=== PATIENT | male | born 1985 | race Caucasian/White ===

== ENCOUNTER 2018-08-15 09:23 | Emergency (ER) | payer OTHER ==
[2018-08-15 09:32] VITALS: BP 128/76; PULSE 75; TEMP 97.9; BMI 26.9
--- NOTE | 2018-08-15 10:47 | PDOC ---
History of Present Illness - General Chief Complaint: Wound Stated Complaint: SENT BY DR/WOUND INFECTION Time Seen by Provider: 08/15/18 10:04 History Source: Patient Exam Limitations: No Limitations - History of Present Illness Initial Comments: 08/15/18 10:22 32-year-old male presents to ED for evaluation of left arm dog bite he sustained 15 days ago. Patient states he was bit by the neighbors petty fraser and due to circumstances was incarcerated for 8 days where he states took 3 days of Augmentin but has not taken any for almost 2 days and is requesting a refill. Patient also requesting a dressing change but denies any fever, chills, worsening pain to the area swelling, or skin discoloration patient does state noticed purulent drainage from the smaller dog bite near the elbow this morning and so decided come to the ER for evaluation Timing/Duration: other Severity: mild Associated Symptoms: reports: denies symptoms Past History - Travel Traveled outside of the country in the last 30 days: No Close contact w/someone who was outside of country & ill: No - Past Medical History Allergies/Adverse Reactions: Allergies Allergy/AdvReac Type Severity Reaction Status Date / Time No Known Allergies Allergy Verified 08/14/17 22:52 Home Medications: Ambulatory Orders Amoxicillin/Potassium Clav [Augmentin 500-125 Tablet] 1 each PO BID 08/15/18 Amoxicillin/Potassium Clav [Augmentin 875-125 Tablet] 1 each PO BID #14 tablet 08/15/18 Clindamycin HCl 450 mg PO TID 08/15/18 Asthma: Yes COPD: No - Immunization History Immunization Up to Date: Yes - Suicide/Smoking/Psychosocial Hx Smoking Status: Yes Smoking History: Never smoked Number of Cigarettes Smoked Daily: 0 Hx Alcohol Use: No Drug/Substance Use Hx: No Substance Use Type: Marijuana Hx Substance Use Treatment: No Patient Lives Alone: No Lives with/in: parents Review of Systems - Review of Systems Able to Perform ROS?: Yes Constitutional: No: Symptoms Reported Respiratory: No: Symptoms reported ABD/GI: No: Symptoms Reported Musculoskeletal: No: Symptoms Reported Integumentary: Yes: Other Hematologic/Lymphatic: No: Symptoms Reported *Physical Exam - Vital Signs Last Vital Signs Temp Pulse Resp BP Pulse Ox 97.9 F 75 17 128/76 98 08/15/18 09:24 08/15/18 09:24 08/15/18 09:24 08/15/18 09:24 08/15/18 09:24 - Physical Exam General Appearance: Yes: Nourished, Appropriately Dressed. No: Apparent Distress Extremity: positive: Normal Range of Motion. negative: Swelling (noted 3 superficial puncture sites to left forearm without redness, increased warmth but noticed minimal purulent drainage to the dorsal wound near elbow. No foul odor. Noted 4 x 2 cm granulating wound to the upper left forearm with surrounding skin intact) Integumentary: positive: Other Neurologic: positive: Motor Strength 5/5 (ambulatory) Medical Decision Making - Medical Decision Making 08/15/18 10:26 Chief complaint: Patient status post dog bite 15 days ago. Patient took 3 days of Augmentin and was not given medication upon discharge from care home yesterday patient also complaining of minimal drainage from one puncture site. Patient is up-to-date on tetanus and the dog received rabies vaccine Exam: Well-appearing wounds with pain granulating tissue to center. Small puncture wound near left elbow with minimal purulent drainage with expression noted. Plan: Clean and redress wound culture sent and will reorder Augmentin *DC/Admit/Observation/Transfer Diagnosis at time of Disposition: Dog bite of arm - Discharge Dispostion Disposition: HOME Condition at time of disposition: Good - Prescriptions Prescriptions: Amoxicillin/Potassium Clav [Augmentin 875-125 Tablet] 1 each PO BID #14 tablet - Referrals - Patient Instructions Printed Discharge Instructions: DI for Dog Bite Additional Instructions: Please take medication starting today and complete. Please change the dressing daily utilizing bacitracin nonstick bandage and Kerlix. Please make sure your hands are clean when doing dressing changes. If you notice any redness swelling fever or increased drainage to site please go to the ER. - Post Discharge Activity
== END 2018-08-15 11:02 | disposition home or self-care (01) ==
LOC: JER 09:23
DX: S51.852D Open bite of left forearm, subsequent encounter (principal); W54.0XXD Bitten by dog, subsequent encounter; Z76.0 Encounter for issue of repeat prescription; Z48.00 Encounter for change or removal of nonsurgical wound dressing
CPT/HCPCS: 87070; 87205; 99283-25